=== PATIENT | female | born 1945 | race Caucasian/White ===

== ENCOUNTER 2023-06-27 11:22 | Emergency (ER) | payer MEDICARE, SELFPAY ==
[2023-06-27 11:33] VITALS: BP 178/80; PULSE 95; RESP 18; TEMP 36.6; O2SAT 95; BMI 32.9
[2023-06-27 11:47] LABS: Add Manual Diff / Slide Review NO; Basophils Absolute Auto 200 /uL (0-100); Basophils Percent Auto 1.1 % (0-2); Eosinophils Absolute Auto 400 /uL (0-450); Eosinophils Percent Auto 2.9 % (2-4); Hematocrit 42.2 % (36-46); Lymphocytes Absolute Auto 2600 /uL (1100-4500); Lymphocytes Percent Auto 17.3 % (25-40); Mean Corpuscular HGB Conc 33.3 % (30-36); Mean Corpuscular Hemoglobin 29.3 PG (26-34); Mean Corpuscular Volume 88.1 fL (80-100); Monocytes Absolute Auto 1200 /uL (0-900); Neutrophils Absolute Auto 10700 /uL (1500-7000); Neutrophils Percent Auto 70.7 % (50-75); Platelet Count 293 X10^3/uL (150-400); Red Blood Cell Count 4.79 X10^6/uL (4.0-5.2); Red Cell Distribution Width 13.9 % (11.6-14.8); White Blood Cell Count 15.1 X10^3/uL (4.5-11.0)
[2023-06-27 12:01] LABS: Alanine Aminotransferase 25 IU/L (<35); Albumin 4.4 g/dL (3.5-5.0); Albumin Globulin Ratio 1.5 (1.0-2.8); Alkaline Phosphatase 86 U/L (38-126); Aspartate Aminotransferase 25 IU/L (14-36); BUN Creatinine Ratio 39.4 (6-22); Bilirubin Total 0.6 mg/dL (0.2-1.3); Blood Urea Nitrogen 28 mg/dL (7-17); Carbon Dioxide 32 mmol/L (22-32); Chloride 104 mmol/L (98-107); Estimated Glomerular Filt Rate > 60 mL/min (>60); Globulin 2.9 g/dL (1.7-4.1); Glucose 156 mg/dL (80-110); HEMOLYSIS < 15 (0-50); Lipase 69 U/L (23-300); Potassium 4.5 mmol/L (3.4-5.1); Sodium 140 mmol/L (137-145); Total Protein 7.3 g/dL (6.3-8.2)
--- NOTE | 2023-06-27 12:18 | DI.CT.S_ITS ---
PROCEDURE: CT ABDOMEN PELVIS WO CON INDICATIONS: Left lower quadrant pain TECHNIQUE: Axial sections were acquired from the lung bases to the pubic symphysis. Coronal and sagittal reformats were performed. For radiation dose reduction, the following was used: automated exposure control, adjustment of mA and/or kV according to patient size. COMPARISON: None. FINDINGS: Image quality: Diagnostic. Lower Chest: No significant findings. URINARY: Right Kidney: No stones or hydronephrosis. Right Ureter: No hydroureter. Left Kidney: A 7 mm in diameter calcification is present within the left renal pelvis which may represent a nonobstructing calculus or a renal artery vascular calcification (series 2/image 34). Left Ureter: No hydroureter. Bladder: Normal wall thickness. No stones. ABDOMEN: Liver: No contour-deforming solid mass. Gallbladder: Surgically absent. Biliary ducts: No biliary dilation. Pancreas: No ductal dilation. Spleen: Size is within normal limits. Adrenal Glands: No adrenal nodules. Stomach and Bowel: Normal colonic caliber, without significant wall thickening. The appendix is not visualized; however there is no discrete right lower quadrant fluid or fat stranding to suggest acute appendicitis. Peritoneum: No abnormal intraperitoneal fluid. No free air. Ventral Wall: No hernia. Abdominal Nodes: No enlarged retroperitoneal or mesenteric lymph nodes. Vessels: Aorta and inferior vena cava are normal in size. PELVIS: Pelvic Organs: Unremarkable. Pelvic Nodes: Unremarkable. Miscellaneous: No inguinal hernias are seen. Bones: Unremarkable. IMPRESSION: 1. Questionable nonobstructing left nephrolithiasis versus vascular calcification. No other nephrolithiasis. No hydronephrosis, hydroureter, ureterolithiasis or bladder calculi. 2. No acute intra-abdominal findings. The appendix is not visualized; however there are no ancillary findings to suggest acute appendicitis. Dictated by: Kimmy Rockwell M.D. on 06/27/2023 at 13:42 Approved by: Kimmy Rockwell M.D. on 06/27/2023 at 13:49
--- NOTE | 2023-06-27 12:25 | ED_ITS ---
HPI - Abdominal Pain General Chief Complaint: Abdominal Pain Stated Complaint: blood in feces Time Seen by Provider: 06/27/23 12:09 Source: patient Mode of arrival: Ambulatory History of Present Illness HPI narrative: Patient here with granddaughter. Granddaughter is driving. Complains of left lower quadrant pain sharp achy dull waxing and waning since last night. Has had mucousy blood stools since last night. Colonoscopy greater than 10 years ago, unknown history of diverticulosis. Has history of hysterectomy appendectomy cholecystectomy. No history of bowel obstruction. Patient does not want anything for pain right now. 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 Pain does not radiate. No chest pain or shortness of breath. No urinary complaints. Related Data Home Medications Medication Instructions Recorded Confirmed Quinipril 40 mg PO DAILY 06/27/23 06/27/23 albuterol sulfate 90 mcg/actuation 1 inh inhalation QID PRN Wheezing 06/27/23 06/27/23 aerosol inhaler amlodipine 2.5 mg tablet 2.5 mg PO QAM 06/27/23 06/27/23 atorvastatin 80 mg tablet 80 mg PO DAILY 06/27/23 06/27/23 duloxetine 60 mg capsule,delayed 60 mg PO DAILY 06/27/23 06/27/23 release fluticasone propionate 110 1 puff inhalation DAILY 06/27/23 06/27/23 mcg/actuation HFA aerosol inhaler furosemide 20 mg tablet 20 mg PO DAILY 06/27/23 06/27/23 gabapentin 800 mg tablet 800 mg PO 4XD 06/27/23 06/27/23 insulin glargine 100 unit/mL (3 See Rx Instructions .Route .COMPLEX 06/27/23 06/27/23 mL) subcutaneous pen (Lantus Solostar U-100 Insulin) metformin 500 mg tablet 500 mg PO BID 06/27/23 06/27/23 montelukast 10 mg tablet 10 mg PO QPM 06/27/23 06/27/23 Previous Rx's Medication Instructions Recorded ciprofloxacin HCl 500 mg tablet 500 mg PO BID #10 tabs 06/27/23 (Cipro) Allergies Allergy/AdvReac Type Severity Reaction Status Date / Time latex Allergy Verified 06/27/23 11:32 Sulfa (Sulfonamide Allergy Verified 06/27/23 11:32 Antibiotics) Review of Systems Review of Systems Narrative: GENERAL: negative chills, fatigue, malaise, fever, sweats. HEENT: negative sinus pain, ear pain, sore throat RESPIRATORY: negative dyspnea, cough CARDIOVASCULAR: negative chest pain, palpitations GASTROINTESTINAL: negative nausea, vomiting, positive bloody stool/abdominal pain : negative dysuria, frequency, hematuria MUSCULOSKELETAL: negative muscle or bony pain SKIN: negative rash, skin lesions NEUROLOGIC: negative weakness, numbness ROS Unobtainable: All systems reviewed & are unremarkable except as noted in HPI and below Patient History Social History Smoking Status: Never smoker Smoking Status: Never smoker alcohol intake frequency: holidays/special occasions only Substance Use Type: does not use Exam Narrative Exam Narrative: GENERAL: in no distress, not toxic not dyspneic HEAD: Normocephalic. EYES: Pupils equal round ENT: Mucous membranes moist. NECK: Trachea midline. Normal heart sounds, lungs clear to auscultation GASTROINTESTINAL: Abdomen soft, reproducible left lower quadrant tenderness. No pain out of portion exam. Bowel sounds are present. No CVA tenderness EXTREMITIES: No gross deformities. BACK: No flank tenderness. NEURO: AOx4. SKIN: Warm and dry PSYCH: Not anxious, is cooperative Initial Vital Signs Initial Vital Signs: Vital Signs Temperature 97.8 F 06/27/23 11:33 Pulse Rate 95 06/27/23 11:33 Respiratory Rate 18 06/27/23 11:33 Blood Pressure 178/80 06/27/23 11:33 Pulse Oximetry 95 06/27/23 11:33 Oxygen Delivery Method Room Air 06/27/23 11:33 Course Orders Ordered: Discontinued Medications Ciprofloxacin (Ciprofloxacin 250 Mg Tablet) 500 mg PO NOW ONE Stop: 06/27/23 14:34 Last Admin: 06/27/23 14:41 Dose: 500 mg Documented By: DANETTE Sodium Chloride (Normal Saline 0.9%) 1,000 mls @ 1,000 mls/hr IV BOLUS ONE Stop: 06/27/23 13:29 Last Infusion: 06/27/23 14:06 Dose: Infused Documented By: Admin: 06/27/23 12:42 Dose: 1,000 mls/hr Documented By: DANETTE Ondansetron HCl (Ondansetron 4 Mg Odt) 4 mg PO NOW PRN PRN Reason: Nausea And Vomiting Ondansetron HCl (Ondansetron 4 Mg/2 Ml Inj) 4 mg IV NOW PRN PRN Reason: Nausea And Vomiting Vital Signs Vital signs: Vital Signs - 8 hr 06/27/23 11:33 06/27/23 12:32 06/27/23 12:58 Temperature 97.8 F Pulse Rate 95 88 Respiratory Rate 18 Blood Pressure 178/80 167/77 H Pulse Oximetry 95 95 Oxygen Delivery Method Room Air 06/27/23 12:58 06/27/23 13:00 06/27/23 13:00 Temperature Pulse Rate 84 83 Respiratory Rate 16 Blood Pressure 164/74 H Pulse Oximetry 95 94 Oxygen Delivery Method Room Air MDM - Abdominal Pain Lab Data 06/27/23 11:35 06/27/23 11:35 Labs: Lab Results 06/27/23 06/27/23 Range/Units 11:35 14:20 WBC 15.1 H (4.5-11.0) X10^3/uL RBC 4.79 (4.0-5.2) X10^6/uL Hgb 14.0 (12.0-16.0) g/dL Hct 42.2 (36-46) % MCV 88.1 (80-100) fL MCH 29.3 (26-34) PG MCHC 33.3 (30-36) % RDW 13.9 (11.6-14.8) % Plt Count 293 (150-400) X10^3/uL Neut % (Auto) 70.7 (50-75) % Lymph % (Auto) 17.3 L (25-40) % [place] % (Auto) 8.0 (3-14) % Eos % (Auto) 2.9 (2-4) % Baso % (Auto) 1.1 (0-2) % Neut # (Auto) 69654 H (0282-0584) /uL Lymph # (Auto) 2600 (4180-3528) /uL [place] # (Auto) 1200 H (0-900) /uL Eos # (Auto) 400 (0-450) /uL Baso # (Auto) 200 H (0-100) /uL Sodium 140 (137-145) mmol/L Potassium 4.5 (3.4-5.1) mmol/L Chloride 104 (98-107) mmol/L Carbon Dioxide 32 (22-32) mmol/L BUN 28 H (7-17) mg/dL Creatinine 0.71 (0.52-1.04) mg/dL Estimated GFR > 60 (>60) mL/min BUN/Creatinine Ratio 39.4 H (6-22) Glucose 156 H (80-110) mg/dL Calcium 10.0 (8.4-10.2) mg/dL Total Bilirubin 0.6 (0.2-1.3) mg/dL AST 25 (14-36) IU/L ALT 25 (<35) IU/L Alkaline Phosphatase 86 (38-126) U/L Total Protein 7.3 (6.3-8.2) g/dL Albumin 4.4 (3.5-5.0) g/dL Globulin 2.9 (1.7-4.1) g/dL Albumin/Globulin Ratio 1.5 (1.0-2.8) Lipase 69 (23-300) U/L Urine RBC 1-5/hpf (0-5/HPF) Urine WBC 10-30/hpf H (0-5/HPF) Ur Squamous Epith Cells 1-5 /hpf (0-5/HPF) Urine Bacteria Many (>30) H (None) Ur Culture Indicated? Cult not indicated Vol Urine Centrifuged 10ml (spun) Point of care testing: Urine Dip Bedside Urine Glucose Negative Bedside Urine Bilirubin - Negative Bedside Urine Ketone - Negative Urine Specific [place] 1.025 Bedside Urine Occult Blood +/- Bedside Urine pH 5.5 Bedside Urine Protein - Negative Bedside Urine Urobilinogen - Negative Bedside Urine Nitrite + Positive Bedside Urine Leukocytes + [address] scan - abdomen/pelvis: Radiologist's Impression: [place] [address] CT Scan Report Signed Patient: Beryl Simons MR#: [id number] : 1945 Acct:[id number] Age/Sex: 77 / F Date of Service: 06/27/23 Loc: ED Accession Number: [id number] Procedure: CT abdomen pelvis wo con Ordering Provider: Mejia Reyes MD PROCEDURE: CT ABDOMEN PELVIS WO CON INDICATIONS: Left lower quadrant pain TECHNIQUE: Axial sections were acquired from the lung bases to the pubic symphysis. Coronal and sagittal reformats were performed. For radiation dose reduction, the following was used: automated exposure control, adjustment of mA and/or kV according to patient size. COMPARISON: None. FINDINGS: Image quality: Diagnostic. Lower Chest: No significant findings. URINARY: Right Kidney: No stones or hydronephrosis. Right Ureter: No hydroureter. Left Kidney: A 7 mm in diameter calcification is present within the left renal pelvis which may represent a nonobstructing calculus or a renal artery vascular calcification (series 2/image 34). Left Ureter: No hydroureter. Bladder: Normal wall thickness. No stones. ABDOMEN: Liver: No contour-deforming solid mass. Gallbladder: Surgically absent. Biliary ducts: No biliary dilation. Pancreas: No ductal dilation. Spleen: Size is within normal limits. Adrenal Glands: No adrenal nodules. Stomach and Bowel: Normal colonic caliber, without significant wall thickening. The appendix is not visualized; however there is no discrete right lower quadrant fluid or fat stranding to suggest acute appendicitis. Peritoneum: No abnormal intraperitoneal fluid. No free air. Ventral Wall: No hernia. Abdominal Nodes: No enlarged retroperitoneal or mesenteric lymph nodes. Vessels: Aorta and inferior vena cava are normal in size. PELVIS: Pelvic Organs: Unremarkable. Pelvic Nodes: Unremarkable. Miscellaneous: No inguinal hernias are seen. Bones: Unremarkable. IMPRESSION: 1. Questionable nonobstructing left nephrolithiasis versus vascular calcification. No other nephrolithiasis. No hydronephrosis, hydroureter, ureterolithiasis or bladder calculi. 2. No acute intra-abdominal findings. The appendix is not visualized; however there are no ancillary findings to suggest acute appendicitis. Dictated by: Kimmy Rockwell M.D. on 06/27/2023 at 13:42 Approved by: Kimmy Rockwell M.D. on 06/27/2023 at 13:49 MDM Narrative Medical decision making narrative: Patient here with granddaughter. Granddaughter is driving. Complains of left lower quadrant pain sharp achy dull waxing and waning since last night. Has had mucousy blood stools since last night. Colonoscopy greater than 10 years ago, unknown history of diverticulosis. Has history of hysterectomy appendectomy cholecystectomy. No history of bowel obstruction. Patient does not want anything for pain right now. 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 Pain does not radiate. No chest pain or shortness of breath. No urinary complaints. After history and exam CBC CMP normal saline CT abdomen pelvis without contrast, patient does not want anything for pain MDM Medical records reviewed: No recent visit for this complaint Differential considered: Includes but not limited to diverticulosis diverticulitis kidney stone UTI pyelonephritis colitis bowel obstruction Lab Test results independently reviewed as above. Pertinent findings: WBC 15.1 hemoglobin 14 hematocrit 42 BUN 28 creatinine 0.71 AST 25 ALT 25 Urinalysis positive nitrite positive leukocyte esterase Independently reviewed EKG normal sinus rhythm rate [address] elevation or depression Imaging studies independently reviewed: CT abdomen pelvis no acute finding Consultations: None indicated at this time Treatments: Normal saline Cipro Re-evaluations: 2:00 p.m.. Updated patient results. At this time reassuring but leukocytosis uncertain source. She did have 1 bout of blood clot in bathroom here. With bowel movement. Awaiting for urinalysis results here. Reviewed with her sometimes with symptoms it is time sensitive to show abnormalities on radiographs. She is comfortable for observation at home. And will return if worsening or if not improving. Patient states she is comfortable for observation at home for any worsening of rectal bleeding and will return. 2:30 p.m.. Pain is controlled. Nausea is controlled. Reviewed urinalysis with patient. Agrees for Cipro for UTI. It does cover for GI tract as well. Return precautions reviewed with patient. Referral for General surgery Dr. Lancaster for future colonoscopy. Return precautions reviewed and she desires discharge home. Discussion: Appropriate for discharge home. Exam and laboratory studies otherwise reassuring. White cell count nonspecific at this time. However will treat for UTI. Patient early in her symptoms and she does agree sometimes not evident on radiographs. Return precautions reviewed. She desires discharge home Diagnosis: Abdominal pain/UTI Discharge Plan Departure Patient Disposition: Home Clinical Impression: Acute UTI, Acute GI bleeding Abdominal pain Qualifiers: Abdominal location: left lower quadrant Qualified Code(s): R10.32 - Left lower quadrant pain Instructions: DI for Urinary Tract Infection (UTI), DI for Abdominal Pain- Adult, Gastrointestinal Bleeding Activity Restrictions/Additional Instructions: Please see family doctor within a week for re-evaluation. Please call provided general surgery office tomorrow for follow up for your abdominal pain and scheduling for colonoscopy. At this time your laboratory studies and imaging studies are reassuring. At this time antibiotics will be provided for treating urinary tract infection. Keep well hydrated. Return if worse if any questions or concerns Prescriptions: New ciprofloxacin HCl [Cipro] 500 mg tablet 500 mg PO BID Qty: 10 0RF No Action metformin 500 mg tablet 500 mg PO BID atorvastatin 80 mg Tablet 80 mg PO DAILY amlodipine 2.5 mg tablet 2.5 mg PO QAM gabapentin 800 mg tablet 800 mg PO 4XD montelukast 10 mg tablet 10 mg PO QPM furosemide 20 mg tablet 20 mg PO DAILY albuterol sulfate 90 mcg/actuation Hfa Aerosol Inhaler 1 inh INHALATION QID PRN (Reason: Wheezing) fluticasone propionate [Flovent HFA] 110 mcg/actuation Hfa Aerosol Inhaler 1 puff INHALATION DAILY duloxetine 60 mg capsule,delayed release(DR/EC) 60 mg PO DAILY insulin glargine [Lantus Solostar U-100 Insulin] 100 unit/mL (3 mL) insulin pen See Rx Instructions .ROUTE .COMPLEX Patient Comments: INJECT 36 UNITS UNDER THE SKIN EVERY MORNING AND 38 UNITS EVERY EVENING Rx Instructions: 36 units AM 38 units PM Quinipril 40 mg PO DAILY Referrals: Medina Andino PA-C [Primary Care Provider] - Myron Lancaster MD [Physician] - Stand Alone Forms: Patient Portal/API
[2023-06-27 12:32] VITALS: PULSE 88; O2SAT 95
[2023-06-27] MEDS: SODIUM CHLORIDE 0.9% 1,000 ML 1000 ML IV (12:42)
[2023-06-27 12:58] VITALS: BP 167/77; PULSE 84; O2SAT 95
[2023-06-27 13:00] VITALS: BP 146/80; BP 164/74; PULSE 80; PULSE 83; RESP 16; O2SAT 94; O2SAT 99
[2023-06-27] MEDS: CIPROFLOXACIN 250 MG TABLET 500 MG PO (14:41)
[2023-06-27 14:48] VITALS: BP 150/67; PULSE 75; RESP 18; TEMP 37.1; O2SAT 98
[2023-06-27 15:02] LABS: Bacteria Urine Many (>30); Culture Indicated Urine Cult Not Indicated; RBC Urine 1-5/HPF (0-5/HPF); Squamous Epithelial Cell Urine 1-5 /HPF (0-5/HPF); Urine Volume 10mL (spun); WBC Urine 10-30/HPF (0-5/HPF)
== END 2023-06-27 14:45 | disposition home or self-care (01) ==
PROVIDERS: Emergency Provider Emergency Medicine; PCP Physician Assistant
DX: N39.0 Urinary tract infection, site not specified (principal); K92.2 Gastrointestinal hemorrhage, unspecified; R10.32 Left lower quadrant pain; Z79.899 Other long term (current) drug therapy
CPT/HCPCS: 36415; 74176; 80053; 81003; 81015; 83690; 85025; 93005; 96360; 99284

== ENCOUNTER 2023-07-17 10:35 | Day surgery (SDC) | payer MEDICARE, SELFPAY ==
[2023-07-17] VITALS (8 sets, daily range): BP systolic 108–170; BP diastolic 52–79; PULSE 70–79; RESP 13–20; TEMP 36.2–37.1; O2SAT 93–98
--- NOTE | 2023-07-17 12:22 | PM.PREOP ---
Pre-operative Note COVID-19 COVID-19 status: Not tested Interval Note History & Physical reviewed/Exam performed by Physician: Yes Changes to H&P: No ASA Class (for procedural sedation): II
[2023-07-17] MEDS: LACTATED RINGERS 1,000 ML 42 ML IV (12:29)
[2023-07-17] MEDS: DEXTROSE 50 % IN WATER 25 GM/50 ML SYRINGE IV (12:40)
--- NOTE | 2023-07-17 13:28 | PM.OP.COLON ---
Operative Date/Time/Diagnoses Date of procedure: 07/17/23 Time of procedure: 13:28 Pre-op diagnosis: Rectal bleeding Post-op diagnosis: same Procedure & Clinicians Study performed: Colonoscopy Same procedure as scheduled: Yes Surgeon: Paul Sam Procedure Notes Procedure in detail: Surgeon: Paul Sam MD Anesthesia: Maria Victoria Varner DO Procedure: The patient was brought to the endoscopy suite, placed in left lateral decubitus position. The patient was connected to monitoring devices. A time-out was performed. Sedation was administered. Once the patient was adequately sedated, a digital rectal exam was performed and was normal. The scope was then inserted and advanced to the cecum where the appendiceal orifice was identified and photographed. The scope was then slowly withdrawn over greater than 6 minutes. The mucosa was thoroughly inspected. No polyps were found. The scope was retroflexed in the rectum. Internal hemorrhoids were noted. The scope was straightened and removed. The patient was awakened and brought to recovery. Scope withdrawal time: 10 minutes Sedation time: 23 minutes EBL: 0 Findings: Internal hemorrhoids Post-procedure Disposition: PACU
--- NOTE | 2023-07-17 13:59 | SUR.PHASEII ---
BP 170/74, Patient denied chest pain, nausea, shortness of breath. Dr. Varner notified. Patient may discharge home per MD.
== END 2023-07-17 14:34 | disposition home or self-care (01) ==
PROVIDERS: PCP Physician Assistant; Referring Provider Surgery; Visit Provider Surgery
PROC: 0DJD8ZZ Inspection of Lower Intestinal Tract, Via Natural or Artificial Opening Endoscopic (ICD-10-PCS; CPT 45378; principal; 2023-07-17 11:45)
DX: K62.5 Hemorrhage of anus and rectum (principal); K64.8 Other hemorrhoids
CPT/HCPCS: 45378; 82962; J2704